=== PATIENT | male | born 1945 | race Caucasian/White ===

== ENCOUNTER → 2019-01-30 | Outpatient (CLI) | payer OTHER ==
[~2019-01-30] VITALS: Ht 175.3 cm; Wt 77.1 kg
[2019-01-30] VITALS (8 sets, daily range): BP systolic 11–158; BP diastolic 49–87
[2019-01-30 08:32] LABS: HEMATOCRIT 44.9 % (42.0-52.0); HEMOGLOBIN 15.3 gm/dL (14.0-18.0); MCH 32.3 pg (26.0-34.0); MCV 94.9 fL (80.0-100.0); MPV 7.7 fl. (7.2-11.1); RBC 4.73 mil/uL (4.50-6.00); RDW-CV 12.7 % (10.5-14.5); WBC 5.6 thou/uL (4.0-11.0)
[2019-01-30 08:45] LABS: APTT 25.9 Seconds (25.0-31.3); PROTIME 10.5 Seconds (9.20-11.50)
[2019-01-30 08:48] LABS: ALBUMIN 3.8 g/dL (3.4-5.0); ALKALINE PHOSPHATASE 69 U/L (46-116); ANION GAP 5 mmol/L (7-16); BUN 20 mg/dL (7-18); CHLORIDE 103 mmol/L (98-107); CHOLESTEROL 188 mg/dL (<200); CO2 32 mmol/L (21-32); CREATININE 1.1 mg/dL (0.6-1.3); GLUCOSE 94 mg/dL (70-99); HDL CHOLESTEROL 80 mg/dL (>40); LDL CHOLESTEROL 89 mg/dL (<100); POTASSIUM 3.6 mmol/L (3.5-5.1); SERUM ASSESSMENT Clear; SGOT 29 U/L (15-37); SGPT 32 U/L (30-65); SODIUM 140 mmol/L (136-145); TC:HDL 2.4 Ratio (Not establshd); TOTAL BILIRUBIN 0.9 mg/dL (<0.1-1.0); TOTAL PROTEIN 7.1 g/dL (6.4-8.2); TRIGLYCERIDE 96 mg/dL (<150); VLDL 19 mg/dL (<40)
--- NOTE | 2019-01-31 18:03 | CARD ---
[address] [address] CARDIAC CATH REPORT Name: RIVER MONTOYA Room: [facility] DAGO EllisKatherin#: [id number] Admission: 01/30/19 Attend Phys: Chip Hoffmann MD, F Discharge: Date of : 43 Report #: [id number] THIS REPORT FOR: //name// APPROVED REPORT Study performed: 01/30/2019 08:20:27 Patient Details Patient Status: Out-Patient Room #: The patient is a 73 year-old male Event Personnel Chip Hoffmann Fly Worker, Cassandra Somers RN Pharmacy Retail Support Specialist, Isidro Ellis, Michaela Kaur RTR Scrub Procedures Performed Left Heart Cath w/LT VGram [id number] LHCLV Left Heart Cath w/LT VGram [id number] LHCLV Supravalvular Aortography Injection [id number] ISVA Indication Dyspnea, Valvular heart disease Risk Factors Hypercholesterolemia Previous Procedures/Diagnoses Previous PCI, Previous SD Admission/Lab Medications/Medications given during procedure Heparin Unfract., Midazolam (Versed) IV 2 mg Procedure Narrative The patient was brought electively to the Cardiac Catheterization Laboratory and was prepped and draped in a sterile manner. The right wrist was infiltrated with 1% Lidocaine subcutaneous anesthesia. A Slender Glidesheath sheath was inserted into the RRA. Coronary angiography was performed using coronary diagnostic catheters. The right coronary system was accessed and visualized with a JR4 catheter. The left coronary system was accessed and visualized with a JL5 6fr catheter. The left ventricle was accessed and visualized with a Angled PIG catheter. Left ventricular/Aortic Valve gradient assessed via catheter pullback. Left ventriculogram was performed in KRUEGER projection. An aortogram of the ascending aorta was performed. Closure device was deployed with a 6 Fr Vasc-Band Reg 24cm[place] [address] CARDIAC CATH REPORT Name: LINDSAYRIVER Room: [facility]#: [id number] Admission: 01/30/19 Attend Phys: Chip Hoffmann MD, F Discharge: Date of : 43 Report #: [id number] patient tolerated the procedure well and there were no complications associated with the procedure. There was no hematoma. Intraoperative Conscious Sedation Dose: 30.6 mGy Contrast Type and Amount: Omnipaque 180 ml Coronary Angiography The patient's coronary anatomy is right dominant. Diagnostic Cath Left Main 30% distal stenosis LAD 70% mid stenosis Diagonal 1 90% ostial stenosis and 80% mid stenosis Circumflex 80% proximal and 80% mid stenosis Right Coronary 30% proximal stenosis. Stent noted in mid rca without restenosis Left Ventriculography The left ventricular ejection fraction is estimated to be 35-40%. Left ventricular wall motion abnormalities are present. There is 1+ mitral insufficiency. Severe hypokinesis noted of inferior wall. Aortic root injection revealed moderate aortic insufficiency. Hemodynamics The aortic pressure is 107/57 mmHg with a mean of 80 mmHg. The left ventricular pressure is 133/10 mmHg with a mean of mmHg. The left ventricular end diastolic pressure is 19 mmHg. There was no gradient across the aortic valve upon pullback. Pullback from the left ventricle to the aorta revealed no gradient across the aortic valve. Conclusion 1. no restenosis of stent in mid rca 2. severe cad of lad and circumflex 3. LVEF of 35-40% 4. moderate aortic [place] [address] CARDIAC CATH REPORT Name: RIVER MONTOYA Room: [facility].#: [id number] Admission: 01/30/19 Attend Phys: Chip Hoffmann MD, F Discharge: Date of : 43 Report #: [id number] 1. refer for CABG and AVR 2. start Coreg 3.125 mg BID <ELECTRONICALLY SIGNED> By: Chip Hoffmann MD, FACC 01/31/19 1803 180 1803Dpaige Hoffmann MD, FACC /INF
== END | disposition home or self-care (01) ==
LOC: M.CL 07:49
PROVIDERS: Internal Medicine Cardiovascular Disease
DX: I25.10 Atherosclerotic heart disease of native coronary artery without angina pectoris (principal); I35.1 Nonrheumatic aortic (valve) insufficiency; E78.00 Pure hypercholesterolemia, unspecified; Z95.5 Presence of coronary angioplasty implant and graft; Z98.890 Other specified postprocedural states; Z79.899 Other long term (current) drug therapy; Z79.01 Long term (current) use of anticoagulants

== ENCOUNTER 2019-02-24 09:42 | Inpatient (IN) | payer OTHER ==
[~2019-02-24] VITALS: Ht 175.3 cm; Wt 68.0 kg
--- NOTE | ~2019-02-24 | PROC ---
[address] [address] PROCEDURE REPORT Name: RIVER MONTOYA Room: [address] IN .R.#: [id number] Admission: 02/24/19 Attend Phys: Bhavani Ibarra MD Discharge: Date of : 43 Report #: [id number] THIS REPORT FOR: //name// For GI report, please see the Provation report in Perceptive 7 content. By: 0642Medical Records Staff ELI /KHOI
[2019-02-24 09:49] VITALS: BP 125/80
[2019-02-24] MEDS ORDERED: COUMADIN 2 MG TA2 M1 PO (10:12)
[2019-02-24] MEDS ORDERED: PACERONE 200 M200 M1 PO (10:13)
[2019-02-24] MEDS ORDERED: CARVEDILOL3.125 MG PO (10:13)
[2019-02-24] MEDS ORDERED: FERREX 150150 MG PO (10:13)
[2019-02-24] MEDS ORDERED: COLACE100 MG PO (10:14)
[2019-02-24] MEDS ORDERED: MIRALAX17 GM PO (10:14)
[2019-02-24] MEDS ORDERED: NORCO 5-325 TA1 EACH PO (10:14)
[2019-02-24] MEDS ORDERED: TYLENOL EXTRA500 MG PO (10:14)
[2019-02-24] MEDS ORDERED: PEPCID40 MG PO (10:15)
[2019-02-24] MEDS ORDERED: VITAMINC500 PO (10:15)
[2019-02-24] MEDS ORDERED: ASPIR 8181 MG PO (10:15)
[2019-02-24] MEDS ORDERED: VITAMIN D3400 UNIT PO (10:15)
[2019-02-24] MEDS ORDERED: CALCIUM + D3 E1 EACH PO (10:16)
[2019-02-24 10:25] LABS: HEMATOCRIT 28.4 % (42.0-52.0); HEMOGLOBIN 9.4 gm/dL (14.0-18.0); MCH 31.6 pg (26.0-34.0); MCHC 33.3 g/dL (28.0-37.0); MCV 95.1 fL (80.0-100.0); MPV 6.9 fl. (7.2-11.1); NUCLEATED RBCS 0 /100WBC; PLATELET COUNT* 304 thou/uL (150-400); RBC 2.99 mil/uL (4.50-6.00); RDW-CV 14.6 % (10.5-14.5)
[2019-02-24 10:39] LABS: CALCIUM 8.8 mg/dL (8.5-10.1); CREATININE 1.4 mg/dL (0.6-1.3); POTASSIUM 4.4 mmol/L (3.5-5.1); TROPONIN-I LEVEL 0.11 ng/mL (<0.06)
[2019-02-24 10:45] LABS: ALBUMIN 2.8 g/dL (3.4-5.0); APTT 29.2 Seconds (25.0-31.3); INR 1.9; PROTIME 19.1 Seconds (9.20-11.50); TOTAL BILIRUBIN 1.1 mg/dL (<0.1-1.0); TOTAL PROTEIN 5.9 g/dL (6.4-8.2)
[2019-02-24 10:49] LABS: ABSOLUTE EOSINOPHILS 0.2 thou/uL (0.0-0.7); ABSOLUTE LYMPHOCYTES 1.1 thou/uL (0.8-5.3); ABSOLUTE MONOCYTES 0.7 thou/uL (0.0-1.2); METAMYELOCYTES 1 %
[2019-02-24 10:50] LABS: PLATELET ESTIMATE ADEQUATE
[2019-02-24 10:51] LABS: ANISOCYTOSIS Occasional
[2019-02-24 11:56] LABS: PCO2 32.9 mmHg (35.0-45.0); PO2 73.2 mmHg (75.0-100.0); pH 7.496 (7.340-7.450)
[2019-02-24 14:55] VITALS: BP 107/63
[2019-02-24 15:14] VITALS: BP 113/74
[2019-02-24 16:00] VITALS: BP 85/55
[2019-02-24 20:00] VITALS: BP 109/66
[2019-02-25] VITALS: BP 104/62
[2019-02-25 04:00] VITALS: BP 104/68
[2019-02-25 04:37] LABS: HEMATOCRIT 25.7 % (42.0-52.0); HEMOGLOBIN 8.7 gm/dL (14.0-18.0); MCH 32.1 pg (26.0-34.0); MCV 94.3 fL (80.0-100.0); MPV 6.6 fl. (7.2-11.1); RBC 2.72 mil/uL (4.50-6.00); RDW-CV 14.8 % (10.5-14.5); WBC 11.7 thou/uL (4.0-11.0)
[2019-02-25 04:46] LABS: CALCIUM 8.5 mg/dL (8.5-10.1); CREATININE 1.5 mg/dL (0.6-1.3); MAGNESIUM 2.1 mg/dL (1.8-2.4)
[2019-02-25 04:55] LABS: INR 1.8; PROTIME 18.7 Seconds (9.20-11.50)
[2019-02-25 08:00] VITALS: BP 111/72
[2019-02-25 12:04] VITALS: BP 90/48
--- NOTE | 2019-02-25 12:52 | EKG ---
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: [facility] : 1945 Requested By: Dolores López Order Number: [id number] MD: Chip Hoffmann Measurements Intervals [place] Rate: 69 P: 76 ID: 168 QRS: -22 QRSD: 116 T: 134 QT: 435 QTc: 466 Interpretive Statements Sinus rhythm Nonspecific intraventricular conduction delay Repol abnrm suggests ischemia, anterolateral No previous ECG available for comparison Electronically Signed On 02-25-2019 12:52:12 CDT by Chip Hoffmann [email or web address] <ELECTRONICALLY SIGNED> By: Chip Hoffmann MD, [facility] 02/25/19 1252 0955 Chip Hoffmann MD, [facility] /EPI
[2019-02-25 16:53] VITALS: BP 110/64
[2019-02-25 19:15] VITALS: BP 105/71
[2019-02-26] VITALS (7 sets, daily range): BP systolic 96–122; BP diastolic 58–74
[2019-02-26 04:37] LABS: HEMATOCRIT 28.9 % (42.0-52.0); HEMOGLOBIN 9.4 gm/dL (14.0-18.0)
[2019-02-26 04:55] LABS: CALCIUM 8.3 mg/dL (8.5-10.1); CREATININE 1.7 mg/dL (0.6-1.3); POTASSIUM 3.3 mmol/L (3.5-5.1)
[2019-02-26 05:04] LABS: INR 2.1
--- NOTE | 2019-02-26 13:37 | EKG ---
[place] [address] ELECTROCARDIOGRAM REPORT Name: RIVER MONTOYA Room: [address] ADM IN M.R.#: [id number] Admission: 02/24/19 Attend Phys: Bhavani Ibarra MD Discharge: Date of : 43 Report #: [id number] THIS REPORT FOR: //name// [facility] Test Date: 2019-02-25 Test Time: 17:10:59 Pat Name: RIVER MONTOYA Department: Room: [address] Gender: M Histology Aide: : 1945 Requested By: Bhavani Ibarra Order Number: [id number] Reading MD: Chip Hoffmann Measurements Intervals [place] Rate: 87 P: [place]: QRS: -21 QRSD: 126 T: 145 QT: 500 QTc: 602 Interpretive Statements Atrial fibrillation LVH with secondary repolarization abnormality Prolonged QT interval Baseline wander in lead(s) V5 Compared to ECG 02/24/2019 09:55:40 Left ventricular hypertrophy now present Prolonged QT interval now present Sinus rhythm no longer present Electronically Signed On 02-26-2019 13:37:31 CDT by Chip Hoffmann [email or web address] <ELECTRONICALLY SIGNED> By: Chip Hoffmann MD, [facility] 02/26/19 1337 1710 1710 Chip Hoffmann MD, [facility] /EPI
--- NOTE | 2019-02-26 15:55 | EKG ---
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: : 1945 Requested By: Chip Hoffmann Order Number: [id number] Tati MD: Deep Kerr Measurements Intervals [place] Rate: 95 P: SD: QRS: -24 QRSD: 121 T: 119 QT: 452 QTc: 569 Interpretive Statements Atrial fibrillation Borderline repolarization abnormality Compared to ECG 02/24/2019 09:55:40 Sinus rhythm no longer present Possible ischemia no longer present Electronically Signed On 02-26-2019 15:55:32 CDT by Deep Kerr [email or web address] <ELECTRONICALLY SIGNED> By: Deep Kerr MD, [facility] 02/26/19 1555 0902 1 Deep Kerr MD, [facility] /EPI
--- NOTE | 2019-02-26 17:25 | CON ---
[facility] [address] [place] [address] CONSULTATION Name: RIVER MONTOYA Room: [address] IN .R.#: [id number] Admission: 02/24/19 Attend Phys: Bhavani Ibarra MD Discharge: Date of : 43 Report #: [id number] THIS REPORT FOR: //name// CC: Chip Valdivia DATE OF SERVICE: 02/24/2019 HISTORY OF PRESENT ILLNESS: The patient is a 73-year-old white male who I was asked to see in the Emergency Room today after he complained of being short of breath. The patient presented last fall with shortness of breath. He was noted to have a heart murmur. He is referred to my partner, Dr. Ponce. Echocardiogram showed evidence of aortic insufficiency. I actually performed a cardiac catheterization here at [facility] as an outpatient on the patient on 01/30/2019. Results showed a stent in the right coronary artery, it had no restenosis. There was severe disease noted in the mid LAD and circumflex. Ejection fraction was 40%. He was then referred to Dr. Jem Lehman and 10 days ago, he underwent aortic valve replacement using tissue valve and coronary artery bypass surgery at [facility]. He tolerated the surgery well. After surgery, he went into atrial fibrillation, he was placed on warfarin and amiodarone. He has also been noted to be severely anemic, but decided not to give him a transfusion. He was discharged on iron 4 days ago. He notes that since his discharge, he has had progressive shortness of breath. He has had swelling of his feet. He has noticed an irregular heartbeat. He felt somewhat nauseated. Because of shortness of breath, his brought him to the Emergency Room today for further evaluation and treatment. He denies any chest pain, any bleeding or fever. PAST MEDICAL HISTORY: He has had shoulder surgery, previous coronary stent. MEDICATIONS: He has been on since his discharge 4 days ago after his open heart surgery included warfarin, iron supplements, amiodarone, carvedilol, Pepcid. FAMILY HISTORY: Negative for heart disease. SOCIAL HISTORY: He is . He and his live in [place]. He quit smoking years ago, does not drink alcohol anymore. REVIEW OF SYSTEMS: He has had no history of stroke. Previous carotid Doppler study showed no significant stenosis. He has no history of peptic ulcer disease, liver disease, kidney disease or cancer. 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 PHYSICAL EXAMINATION: GENERAL: Revealed an elderly male, who appeared [place] [address] CONSULTATION Name: RIVER MONTOYA Room: [address] IN [facility]#: [id number] Admission: 02/24/19 Attend Phys: Bhavani Ibarra MD Discharge: Date of : 43 Report #: [id number] VITAL SIGNS: He had a blood pressure 120/80, pulse is 70, he is afebrile. HEENT: He is anicteric. Conjunctivae pink. Mucous membranes are dry. NECK: No jugular vein distention. No carotid bruits. CHEST: Clear to auscultation. CARDIAC: Regular rate and rhythm, grade 2 systolic ejection murmur. ABDOMEN: Soft. EXTREMITIES: Had trace edema. Dorsalis pedis pulse 1+ bilaterally. SKIN: Warm, dry. NEUROLOGIC: Nonfocal. DIAGNOSTIC DATA: ECG shows a sinus rhythm, nonspecific ST-segment changes. His workup in the Emergency Room today, he had portable chest x-ray in the Emergency Room that showed cardiomegaly, small left effusion. Right lung clear. No pneumothorax. LABORATORY WORK: Today sodium 140, creatinine 1.4, albumin is 2.8. Troponin 0.11. BNP 2587. His INR is 1.9. White blood cell count 12.0, hemoglobin 9.4, hematocrit 28.4. IMPRESSION AND RECOMMENDATIONS: 1. Shortness of breath. Reason unclear. No pulmonary edema or pneumonia. The patient is to have a V/Q scan and look for a pulmonary embolus. However, the patient is anticoagulated, possibly related to anemia. 2. Anemia. The patient's hemoglobin has gone from 7 up to 9 at this time. He does not require transfusion. 3. History of atrial fibrillation. Currently in sinus rhythm on amiodarone. I would continue chronic anticoagulation, maintain INR on 2-3. 4. Previous coronary stent. 5. Previous tobacco abuse. 6. Chronic kidney disease. <ELECTRONICALLY SIGNED> By: Chip Hoffmann MD, [facility] 02/26/19 1725 1206 1539Davielaine Hoffmann MD, FACC /nt
[2019-02-27 04:00] VITALS: BP 101/62
[2019-02-27 05:43] LABS: ABSOLUTE EOSINOPHILS 0.3 thou/uL (0.0-0.7); ABSOLUTE MONOCYTES 0.6 thou/uL (0.0-1.2); ABSOLUTE NEUTROPHILS 7.3 thou/uL (1.6-8.1); BASOPHILS 0.3 %; EOSINOPHILS 2.9 %; HEMOGLOBIN 8.6 gm/dL (14.0-18.0); LYMPHOCYTES 10.7 %; MCHC 33.3 g/dL (28.0-37.0); MCV 96.2 fL (80.0-100.0); MPV 6.8 fl. (7.2-11.1); NUCLEATED RBCS 0 /100WBC; PLATELET COUNT* 286 thou/uL (150-400); POLYS 79.1 %; RDW-CV 15.3 % (10.5-14.5); WBC 9.3 thou/uL (4.0-11.0)
[2019-02-27 05:53] LABS: INR 2.2; PROTIME 22.4 Seconds (9.20-11.50)
[2019-02-27 06:09] LABS: ALBUMIN 2.5 g/dL (3.4-5.0); CALCIUM 8.3 mg/dL (8.5-10.1); CREATININE 1.5 mg/dL (0.6-1.3); POTASSIUM 4.6 mmol/L (3.5-5.1); TOTAL BILIRUBIN 0.7 mg/dL (<0.1-1.0); TOTAL PROTEIN 5.3 g/dL (6.4-8.2)
[2019-02-27 07:02] LABS: ESR (SEDRATE) 5 mm/hr (0-20)
[2019-02-27 07:41] VITALS: BP 106/67
[2019-02-27 08:00] VITALS: BP 106/74
--- NOTE | 2019-02-27 11:01 | CON ---
[facility] [address] [place] [address] CONSULTATION Name: RIVER MONTOYA Room: [address] IN .R.#: [id number] Admission: 02/24/19 Attend Phys: Bhavani Ibarra MD Discharge: Date of : 43 Report #: [id number] THIS REPORT FOR: //name// CC: Chip Hoffmann FAM unknown Bhavani Ibarra REFERRING PHYSICIAN: Dr. Ibarra. REASON FOR CONSULTATION: Abnormal V/Q scan. HISTORY OF PRESENT ILLNESS: The patient is a pleasant 73-year-old male patient who was admitted to this facility on 02/24/2019 with few days history of increasing shortness of breath. The patient had a valve surgery at [facility] for aortic insufficiency. He underwent aortic valve replacement with tissue valve and coronary artery bypass at that time. In the postoperative period, he developed some atrial fibrillation and started on Coumadin and he was discharged home on Coumadin. His EF was 40%. The patient reported the second day after discharge, he started feeling weak, tired with poor performance and poor oral intake and he started noticing that he was more short of breath and he actually described PNDs and orthopnea. He presented for further evaluation and was admitted to the hospital. He had lower extremities edema. He had irregular heartbeat. Also, he had some nausea and poor oral intake. PAST MEDICAL HISTORY: Coronary artery disease, status post coronary artery bypass graft recently and aortic valve replacement, history of smoking in the remote past. No history of COPD. No history of asthma. He had history of coronary stenting. PAST SURGICAL HISTORY: Include coronary stenting and CABG in addition to shoulder surgery. MEDICATION: Coumadin, iron supplement, amiodarone, Coreg, Pepcid. FAMILY HISTORY: Reviewed with the patient and negative for heart disease. SOCIAL HISTORY: , lives with his . Quit smoking many years ago. Does not drink alcohol. Does not abuse drugs. REVIEW OF SYSTEMS: All review of systems reviewed the patient, negative other than as mentioned above. PHYSICAL EXAMINATION: VITAL SIGNS: He was on room air with saturation more than 90%, blood pressure 112/68, pulse rate of 73, temperature 36.7. HEAD: Normocephalic, atraumatic. Pupils reactive to light, slightly pale. External ear, looks healthy and normal. Pupils [place] [address] CONSULTATION Name: RIVER MONTOYA Room: [address]#: [id number] Admission: 02/24/19 Attend Phys: Bhavani Ibarra MD Discharge: Date of : 43 Report #: [id number] cavity, Mallampati of 2-3. NECK: Supple. Full range of movement. CHEST: Diminished air movement at the bases. I did not hear crackles, wheezes or rhonchi. Clean scar in the sternal area. HEART: S1, S2, no murmur. ABDOMEN: Benign, soft, lax, nontender, positive bowel sounds. EXTREMITIES: Lower extremity, trace edema, equal bilaterally. No calf tenderness. PSYCHIATRIC: Mood and affect anxious. NEUROLOGIC: Moving 4 extremities spontaneously. No focal weakness. Venous Doppler ultrasound of the lower extremities negative for DVT. His chest x-ray showed blunting of the left costophrenic angle. CT of the chest showed small bilateral pleural effusion with area of atelectasis versus infiltrate. His white blood count is 12, hemoglobin 9.4 and platelets of 304. Blood gas 7.49/32/73 on room air. INR when he came was 1.9, is 2.1 today. IMPRESSION: 1. Dyspnea. 2. Pulmonary infiltrate. 3. Small pleural effusion. 4. Atelectasis. 5. Status post coronary artery bypass graft. 6. Congestive heart failure with depressed ejection fraction. 7. Coronary artery disease. 8. Abnormal V/Q scan. PLAN: The patient's shortness of breath can be explained by fluid overload and cardiac status with depressed EF and congestive heart failure. He has typical symptoms of PND and orthopnea with small bilateral pleural effusion. Currently, he is being seen by Cardiology and he is being diuresed. Pneumonia could not be ruled out, that is why he is on antibiotics. I did not hear wheezes. I do not think he has any bronchospasm at this point. Regarding the pleural effusion, hopefully, it will respond to diuresis; however, if it becomes resistant, an attempt for therapeutic thoracentesis can be considered, but his Coumadin needs to be held if indicated. This could be an element of atelectasis. I encouraged ambulation out of bed if it is okay with other consultants and to continue to use the incentive spirometry. Regarding the V/Q scan, it is intermediate probability with a negative Doppler ultrasound of lower extremities and the other finding on the examination that would explain his symptoms. In any case, he is fully anticoagulated at this point and I would just continue the anticoagulation for his atrial fibrillation. [address] [address] CONSULTATION Name: RIVER MONTOYA Room: [address] IN [facility]#: [id number] Admission: 02/24/19 Attend Phys: Bhavani Ibarra MD Discharge: Date of : 43 Report #: [id number] Thank you for the consult. Discussed with the patient and his . <ELECTRONICALLY SIGNED> By: Susanne Burnette MD 02/27/19 1101 1026 0112Dpaula Burnette MD /nt
[2019-02-27 12:00] VITALS: BP 120/40
--- NOTE | 2019-02-27 14:19 | EKG ---
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: : 1945 Requested By: Chip Hoffmann Order Number: [id number] Tati MD: Jem Banuelos Measurements Intervals [place] Rate: 67 P: 75 OR: 179 QRS: -17 QRSD: 127 T: 131 QT: 514 QTc: 543 Interpretive Statements Sinus rhythm Nonspecific intraventricular conduction delay Borderline repolarization abnormality Compared to ECG 02/26/2019 09:02:08 Intraventricular conduction delay now present Atrial fibrillation no longer present Electronically Signed On 02-27-2019 14:19:10 CDT by Jem Banuelos [email or web address] <ELECTRONICALLY SIGNED> By: Jem Banuelos MD, [facility] 02/27/19 1419 3 Jem Banuelos MD, [facility] /EPI
[2019-02-27 16:00] VITALS: BP 109/58
[2019-02-27 20:00] VITALS: BP 94/54
[2019-02-28] VITALS: BP 97/68
[2019-02-28 04:00] VITALS: BP 107/68
[2019-02-28 04:55] LABS: HEMATOCRIT 27.9 % (42.0-52.0); HEMOGLOBIN 9.2 gm/dL (14.0-18.0); MCH 31.7 pg (26.0-34.0); MCV 96.2 fL (80.0-100.0); MPV 6.5 fl. (7.2-11.1); RBC 2.9 mil/uL (4.50-6.00); WBC 8.7 thou/uL (4.0-11.0)
[2019-02-28 05:03] LABS: INR 2.7; PROTIME 27.3 Seconds (9.20-11.50)
[2019-02-28 05:08] LABS: CALCIUM 8.3 mg/dL (8.5-10.1); CREATININE 1.5 mg/dL (0.6-1.3); MAGNESIUM 2.2 mg/dL (1.8-2.4); POTASSIUM 4.3 mmol/L (3.5-5.1)
[2019-02-28 08:07] VITALS: BP 119/65
[2019-02-28 11:22] VITALS: BP 117/62
[2019-02-28 15:58] VITALS: BP 119/79
[2019-02-28 20:07] VITALS: BP 111/68
[2019-03-01 00:03] VITALS: BP 121/67
[2019-03-01 04:00] VITALS: BP 107/66
[2019-03-01 05:02] LABS: INR 2.7; PROTIME 27.4 Seconds (9.20-11.50)
[2019-03-01 07:53] VITALS: BP 117/76
[2019-03-01 12:09] VITALS: BP 120/82
[2019-03-01 16:00] VITALS: BP 117/62
--- NOTE | 2019-03-01 16:15 | 2DMMODE ---
[place] [address] 2 D/M-MODE ECHOCARDIOGRAM Name: RIVER MONTOYA Room: [address] IN [facility]#: [id number] Admission: 02/24/19 Attend Phys: Bhavani Ibarra, Discharge: Date of : 41 Date of Service: 03/01/19 1615 Report #: [id number] THIS REPORT FOR: //name// ADDENDUM APPROVED REPORT Study performed: 03/01/2019 15:24:30 EXAM: Comprehensive 2D, Doppler, and color-flow Echocardiogram Patient Location: In-Patient Room #: [facility] Status: routine BSA: 1.81 HR: 67 bpm BP: 120/82 mmHg Rhythm: NSR Other Information Study Quality: Good Indications Congestive Heart Failure CAD Pleural Effusion 2D Dimensions IVSd: 12.59 (7-11mm) LVOT Diam: 20.70 (18-24mm) LVDd: 47.91 mm PWd: 11.08 (7-11mm) Ascending Ao: 36.02 (22-36mm) LVDs: 35.13 (25-40mm) Aortic Root: 38.02 mm Volumes Left Atrial Volume (Systole) LA ESV Index: 21.00 mL/m2 Aortic Valve AoV Peak Hunter.: 2.51 m/s AO Peak Gr.: 25.17 mmHg LVOT Max P.42 mmHg AO Mean Gr.: 14.40 mmHg LVOT Mean P.38 mmHg LVOT Max V: 1.05 m/s AO V2 VTI: 41.40 cm LVOT Mean V: 0.72 m/s GILDA (VTI): 1.41 cm2 LVOT V1 VTI: 17.30 cm Mitral Valve E/A Ratio: 1.06 [place] [address] 2 D/M-MODE ECHOCARDIOGRAM Name: RIVER MONTOYA Room: [address] IN .R.#: [id number] Admission: 02/24/19 Attend Phys: Bhavani Ibarra, Discharge: Date of : 41 Date of Service: 03/01/19 1615 Report #: [id number] MV Decel. Time: 223.77 ms MV E Max Hunter.: 0.57 m/s MV PHT: 64.89 ms MVA (PHT): 3.39 cm2 TDI E/Lateral E': 6.33 E/Medial E': 9.50 Medial E' Hunter.: 0.06 m/s Lateral E' Hunter.: 0.09 m/s Pulmonary Valve PV Peak Hunter.: 1.41 m/s PV Peak Gr.: 8.01 mmHg Left Ventricle The left ventricle is normal size. There is normal LV segmental wall motion. There is normal left ventricular wall thickness. Left ventricular systolic function is normal. The left ventricular ejection fraction is within the normal range. LVEF is 50-55%. The left ventricular diastolic function is normal. Right Ventricle The right ventricle is normal size. The right ventricular systolic function is normal. Atria The left atrium size is normal. The right atrium size is normal. Aortic Valve Moderate aortic valve sclerosis. Bioprosthetic aortic valve is present. No aortic regurgitation is present. Mild aortic stenosis. Mitral Valve The mitral valve is normal in structure. Trace mitral regurgitation. No evidence of mitral valve stenosis. Tricuspid Valve The tricuspid valve is normal in structure. Trace tricuspid regurgitation. No pulmonary hypertension. Pulmonic Valve The pulmonary valve is normal in structure. There is no pulmonic valvular regurgitation[place] [address] 2 D/M-MODE ECHOCARDIOGRAM Name: RIVER MONTOYA Room: [address]#: [id number] Admission: 02/24/19 Attend Phys: Bhavani Ibarra, Discharge: Date of : 41 Date of Service: 03/01/19 1615 Report #: [id number] The aortic root is normal in size. IVC is normal in size and collapses >50% with inspiration. Pericardium There is no pericardial effusion. Left pleural effusion. <Conclusion> The left ventricle is normal size. There is normal left ventricular wall thickness. Left ventricular systolic function is normal. The left ventricular ejection fraction is within the normal range. LVEF is 50-55%. The left ventricular diastolic function is normal. The right ventricle is normal size. The left atrium size is normal. Moderate aortic valve sclerosis. No aortic regurgitation is present. Mild aortic stenosis. The mitral valve is normal in structure. Trace mitral regurgitation. The tricuspid valve is normal in structure. IVC is normal in size and collapses >50% with inspiration. There is no pericardial effusion. There is normal LV segmental wall motion. Bioprosthetic aortic valve is present. Left pleural effusion. <ELECTRONICALLY SIGNED> By: Jem Banuelos MD, FACC 03/01/19 1615 1615 1615 Jem Banuelos MD, FACC /INF
--- NOTE | 2019-03-01 19:36 | CON ---
[facility] [address] [place] [address] CONSULTATION Name: RIVER MONTOYA Room: [address] IN M.R.#: [id number] Admission: 02/24/19 Attend Phys: Bhavani Ibarra MD Discharge: Date of : 41 Report #: [id number] THIS REPORT FOR: //name// CC: Chip Geiger FAM unknown Bhavani Ibarra MD DATE OF SERVICE: 02/26/2019 REFERRING PHYSICIAN: Bhavani Ibarra MD. REASON FOR CONSULTATION: Persistent nausea and anorexia. IMPRESSION: 1. Dysphagia associated with early satiety, nausea, burping and belching -- evaluate for upper gastrointestinal tract anatomic or physiologic problems versus medication related (amiodarone versus iron). 2. Versus other causes. 3. Postoperative anemia without any history to suggest gastrointestinal blood loss. 4. Status post coronary artery bypass grafting and aortic valve replacement on 02/14/2019 for symptomatic coronary artery disease and aortic valve disorder. 5. Atrial fibrillation with postoperative atrial fibrillation requiring anticoagulation. 6. Congestive heart failure with mild pneumonia. RECOMMENDATIONS: 1. The patient's premorbid status prior to surgery revealed that he had no GI complaints. All of his issues have happened after surgery. For this reason, I recommend that we proceed with an upper endoscopy today and depending on the results of the same, he may need to have a gastric emptying scan done as well, appear to be unlikely he developed postoperative gastroparesis. 2. Another possibility would be that it may be related to medications including amiodarone and/or iron. 3. As I mentioned above, it may be related to medication as well. We will need to proceed with some studies first before deciding whether or not to discontinue the amiodarone as this can certainly be a culprit for the same, he may need to have an alternate medication to help with his atrial fibrillation. I have discussed the plans with the patient as well and he is agreeable to the same. HISTORY OF PRESENT ILLNESS: The patient is a very pleasant 73[place] [address] CONSULTATION Name: RIVER MONTOYA Room: [address] IN [facility]#: [id number] Admission: 02/24/19 Attend Phys: Bhavani Ibarra MD Discharge: Date of : 43 Report #: [id number] male with history of coronary artery disease and aortic valve disease who underwent uneventful coronary artery bypass grafting and aortic valve replacement at [facility] in late January. Postoperatively, he developed some problems with atrial fibrillation, which required the patient to be placed on medications for the same. Since that time, he has had issues with early satiety, some issues with dysphagia and postprandial fullness. He has also had some problems with gas and bloating. He denies any prior history of any problems related to his upper GI tract in the past and undergone upper endoscopy within the last couple of years by Dr. Delmar Alcala and the exam was apparently unrevealing. This is being done to evaluate for any relationship to any problems related to chronic gastric reflux, which the patient takes Pepcid. He denies any progressive dysphagia, odynophagia, any problems with liquids, but is not afraid to eat solids. He denies any abdominal pain and has not had any problem with his bowels or bowel frequency. He was admitted to the hospital because of problem with shortness of breath, found to have some pneumonia and/or congestive heart failure, which is being treated at this time. He is doing better with regards to the same. ALLERGIES: LISINOPRIL AND SIMVASTATIN. MEDICATIONS: At home include docusate, hydrocodone, famotidine, aspirin, ascorbic acid, vitamin D, calcium, and MiraLax. He is also taking amiodarone, warfarin. He is also taking some iron supplement postoperatively. PAST MEDICAL HISTORY: Remarkable for coronary artery disease with previous stents as well as eventually bypass surgery and aortic valve replacement. He has had previous shoulder surgeries well. He has history of hypertension. SOCIAL HISTORY: The patient quit smoking, quit back in 1980s, does not drink alcohol on a regular basis. FAMILY HISTORY: Remarkable for his mother having issues with her esophagus. PHYSICAL EXAMINATION: GENERAL: Pleasant 73-year-old gentleman who is awake and alert. CARDIOPULMONARY: Revealed an irregular rate and rhythm. LUNGS: Clear. ABDOMEN: Soft and not tender. No rebound or guarding noted. LABORATORY DATA: From 8th revealed a white count 11.7, hemoglobin 8.7, platelet count 260,000, MCV is 94.3 and RDW is 14.8. His sodium 144, potassium 4.0, chloride 104, bicarbonate 31, BUN 27, creatinine 1.5. GFR 46. His INR is 2.1. Chest x-ray revealed interval decrease in left-sided pleural effusion with a poor aeration. He had some mild left basilar atelectasis and pneumonia without any increasing infiltrate, no evidence for pneumothorax. [address] [address] CONSULTATION Name: RIVER MONTOYA Room: [address] IN ..#: [id number] Admission: 02/24/19 Attend Phys: Bhavani Ibarra MD Discharge: Date of : 41 Report #: [id number] He just did undergo CT scan of the chest on the 02/24/2019, which revealed no evidence for a pulmonary emboli. He did have infiltrate. His liver looks normal on CT as well as his pancreas, gallbladder, and kidneys. I do not see anything of concern within CT scan of the chest, which goes to the upper abdominal structures. DISCUSSION: At the present time, the patient has had some issues with postprandial nauseousness. We will proceed with an upper endoscopy today and make further recommendations thereafter. <ELECTRONICALLY SIGNED> By: Lalit Corona DO 03/01/19 [id number] Corona DO /nt
[2019-03-01 19:59] VITALS: BP 107/67
[2019-03-02] VITALS: BP 110/69
[2019-03-02 04:00] VITALS: BP 96/65
[2019-03-02 05:09] LABS: ABSOLUTE BASOPHILS 0.1 thou/uL (0.0-0.2); ABSOLUTE EOSINOPHILS 0.4 thou/uL (0.0-0.7); ABSOLUTE LYMPHOCYTES 1.1 thou/uL (0.8-5.3); ABSOLUTE MONOCYTES 0.6 thou/uL (0.0-1.2); ABSOLUTE NEUTROPHILS 6.6 thou/uL (1.6-8.1); BASOPHILS 0.7 %; EOSINOPHILS 4.4 %; HEMATOCRIT 30.6 % (42.0-52.0); MCH 31.5 pg (26.0-34.0); MCHC 32.7 g/dL (28.0-37.0); MCV 96.6 fL (80.0-100.0); MONOCYTES 7.2 %; NUCLEATED RBCS 0 /100WBC; PLATELET COUNT* 324 thou/uL (150-400); POLYS 75.7 %; RBC 3.17 mil/uL (4.50-6.00); RDW-CV 15.1 % (10.5-14.5); WBC 8.7 thou/uL (4.0-11.0)
[2019-03-02 05:26] LABS: INR 2.5; PROTIME 25.3 Seconds (9.20-11.50)
[2019-03-02 05:29] LABS: CALCIUM 8.6 mg/dL (8.5-10.1); CREATININE 1.4 mg/dL (0.6-1.3); POTASSIUM 4.1 mmol/L (3.5-5.1)
[2019-03-02 08:00] VITALS: BP 114/69
[2019-03-02 13:12] VITALS: BP 96/61
[2019-03-02 16:22] VITALS: BP 101/52
[2019-03-02 19:35] VITALS: BP 86/62
[2019-03-03] VITALS: BP 93/66
[2019-03-03 04:00] VITALS: BP 112/71
[2019-03-03 05:19] LABS: INR 2.7; PROTIME 27.3 Seconds (9.20-11.50)
[2019-03-03 05:33] LABS: CALCIUM 9.1 mg/dL (8.5-10.1); CREATININE 1.5 mg/dL (0.6-1.3); MAGNESIUM 2.2 mg/dL (1.8-2.4); POTASSIUM 4.2 mmol/L (3.5-5.1)
[2019-03-03 07:58] VITALS: BP 99/69
[2019-03-03 08:32] VITALS: BP 99/69
[2019-03-03] MEDS ORDERED: COUMADIN 2 MG TA2 M1 PO (11:45)
[2019-03-03] MEDS ORDERED: KLOR-CON M2020 MEQ PO (11:46)
[2019-03-03] MEDS ORDERED: NEXIUM40 MG PO (11:47)
[2019-03-03] MEDS ORDERED: LASIX 20 MG TAB20 MG PO (11:47)
[2019-03-03] MEDS ORDERED: BENTYL 10 MG CA10 M1 PO (11:48)
== END 2019-03-03 13:45 | disposition home or self-care (01) | DRG 177 ==
LOC: M.ERS 09:42 → M.TBA-ER 12:26 → M.2W 12:26
PROVIDERS: Family Medicine; Internal Medicine Cardiovascular Disease; Internal Medicine Gastroenterology; Personal Emergency Response Attendant; ADMIT Internal Medicine
PROC: 0DJ08ZZ Inspection of Upper Intestinal Tract, Via Natural or Artificial Opening Endoscopic (ICD-10-PCS; principal; 2019-02-26)
DX: J15.6 Pneumonia due to other Gram-negative bacteria (principal); I50.43 Acute on chronic combined systolic (congestive) and diastolic (congestive) heart failure; I13.0 Hypertensive heart and chronic kidney disease with heart failure and stage 1 through stage 4 chronic kidney disease, or unspecified chronic kidney disease; N17.9 Acute kidney failure, unspecified; J98.11 Atelectasis; I25.10 Atherosclerotic heart disease of native coronary artery without angina pectoris; N18.3 Chronic kidney disease, stage 3 (moderate); K21.9 Gastro-esophageal reflux disease without esophagitis; R13.10 Dysphagia, unspecified; D64.9 Anemia, unspecified; K44.9 Diaphragmatic hernia without obstruction or gangrene; R26.9 Unspecified abnormalities of gait and mobility; I48.91 Unspecified atrial fibrillation; E78.5 Hyperlipidemia, unspecified; R19.7 Diarrhea, unspecified; Z95.1 Presence of aortocoronary bypass graft; Z95.4 Presence of other heart-valve replacement; Z79.899 Other long term (current) drug therapy; Z88.8 Allergy status to other drugs, medicaments and biological substances; Z79.01 Long term (current) use of anticoagulants; Z79.82 Long term (current) use of aspirin; Z95.5 Presence of coronary angioplasty implant and graft; Z87.891 Personal history of nicotine dependence; Z79.1 Long term (current) use of non-steroidal anti-inflammatories (NSAID)

== ENCOUNTER 2021-03-16 13:52 | Inpatient (IN) | payer OTHER ==
[~2021-03-16] VITALS: Ht 175.3 cm; Wt 73.9 kg
[~2021-03-16 13:52] MED LIST: ASPIR 8181 MG PO; BENTYL 10 MG CA10 M1 PO; CALCIUM + D3 E1 EACH PO; CARVEDILOL3.125 MG PO; COLACE100 MG PO; COUMADIN 2 MG TA2 M1 PO; FERREX 150150 MG PO; KLOR-CON M2020 MEQ PO; LASIX 20 MG TAB20 MG PO; MIRALAX17 GM PO; NEXIUM40 MG PO; NORCO 5-325 TA1 EACH PO; PACERONE 200 M200 M1 PO; PEPCID40 MG PO; TYLENOL EXTRA500 MG PO; VITAMIN D3400 UNIT PO; VITAMINC500 PO
[2021-03-16] MEDS ORDERED: FAMOTIDINE40 MG PO (16:39)
[2021-03-16] MEDS ORDERED: EZETIMIBE10 MG PO (16:40)
[2021-03-16] MEDS ORDERED: PRADAXA150 MG PO (16:40)
[2021-03-16 17:10] VITALS: BP 133/88
[2021-03-16 20:44] VITALS: BP 113/68
[2021-03-17 00:15] VITALS: BP 108/71
[2021-03-17 04:49] LABS: ABSOLUTE EOSINOPHILS 0.1 thou/uL (0.0-0.7); ABSOLUTE LYMPHOCYTES 1.8 thou/uL (0.8-5.3); ABSOLUTE MONOCYTES 0.5 thou/uL (0.0-1.2); ABSOLUTE NEUTROPHILS 3.7 thou/uL (1.6-8.1); BASOPHILS 0.5 %; HEMOGLOBIN 13.8 gm/dL (14.0-18.0); LYMPHOCYTES 29.9 %; MCH 32.1 pg (26.0-34.0); MCHC 33.6 g/dL (28.0-37.0); MCV 95.4 fL (80.0-100.0); MONOCYTES 7.5 %; MPV 7.5 fl. (7.2-11.1); NUCLEATED RBCS 0 /100WBC; PLATELET COUNT* 135 thou/uL (150-400); POLYS 60.1 %; RDW-CV 12.9 % (10.5-14.5); WBC 6.1 thou/uL (4.0-11.0)
[2021-03-17 05:00] LABS: CALCIUM 9.2 mg/dL (8.5-10.1); CREATININE 0.9 mg/dL (0.6-1.3); POTASSIUM 3.8 mmol/L (3.5-5.1)
[2021-03-17 05:19] VITALS: BP 128/86
[2021-03-17 08:00] VITALS: BP 117/75
[2021-03-17 15:48] VITALS: BP 117/75
--- NOTE | 2021-03-17 16:53 | CARD ---
[address] [address] CARDIAC CATH REPORT Name: RIVER MONTOYA Room: [address] IN [facility].#: [id number] Admission: 03/16/21 Attend Phys: Rodriguez Mena MD Discharge: 03/17/21 Date of : 43 Report #: [id number] THIS REPORT FOR: cc: Chip Geigre David J. DO Blick, David R. MD [facility] ~ APPROVED REPORT Study performed: 03/17/2021 08:03:02 Patient Details Patient Status: In-Patient Room #: 230 The patient is a 75 year-old male Event Personnel Chip Hoffmann Lacrosse Player, Shasha Oscar RN RN, Salomon Yoder RTR Scrub, Kim Maurer RTR Monitor Procedures Performed Art Access - R femoral artery Left Heart Cath Coronaries, Bypass Grafts Supravalvular Aortography Injection Hemostasis w/ Mynx Indication Arrhythmia, Dyspnea, Valvular heart disease, Chest pain Risk Factors Hypercholesterolemia, Coronary Artery Disease Previous Procedures/Diagnoses Previous CABGPrevious PCI, Previous Valve Surgery Admission/Lab Medications/Medications given during procedure Midazolam (Versed) IV 2 mg, Lidocaine Subcut 14 ml, Oxygen Nasal cannula 2 l per min, 0.9% Sodium Chloride IV 75 ml per hr, Midazolam (Versed) IV 1 mg Procedure Narrative The patient was brought electively to the Cardiac Catheterization Laboratory and was prepped and draped in a sterile manner. The right femoral was infiltrated with 2% Lidocaine subcutaneous anesthesia. IV conscious sedation was used throughout procedure with appropriate monitoring and was performed in the presence [place] [address] CARDIAC CATH REPORT Name: RIVER MONTOYA Room: [address]#: [id number] Admission: 03/16/21 Attend Phys: Rodriguez Mena MD Discharge: 03/17/21 Date of : 43 Report #: [id number] who was an independent trained observer other than the physician performing the procedure. A Moore 6 FR sheath was inserted into the right femoral artery. Coronary angiography was performed using coronary diagnostic catheters. The right coronary system was accessed and visualized with a Diagnostic 6 Fr JR 4 catheter. The left coronary system was accessed and visualized with a Diagnostic 6 Fr JL 4 catheter. An aortogram of the ascending aorta was performed. Closure device was deployed with a 6 Fr Mynx 6Fr/7Fr. The patient tolerated the procedure well and there were no complications associated with the procedure. There was no hematoma. The SVG graft to the diagonal artery, ramus artery, and OM was accessed and visualized with a Diagnostic 6 Fr RCB catheter. The HAYWOOD graft to the LAD was accessed and visualized with a Diagnostic 6 Fr IM catheter. Unable to cannulate the SVG with JR4 catheter, left SVG catheter, nor MTP catheter. Intraoperative Conscious Sedation Sedation start time: 08 Case end Time: 0910 Versed 3 mg Fluoro Time: 7.8 minutes Dose: DAP 47031 cGycm2 934 mGy Contrast Type and Amount: Omnipaque 200 ml Coronary Angiography The patient's coronary anatomy is right dominant. [place] Artery Percent Stenosis Grafts (Complete if Previous CABG=Yes: Percent Stenosis) HAYWOOD graft to the LAD appeared chronically occluded. Single SVG was patent with a jump graft to first diagonal artery, ramus artery, and to the 3rd marginal branch of the circumflex Diagnostic Cath Left Main 0% stenosis LAD 60% mid stenosis Diagonal 1 90% ostial stenosis Circumflex 70% proximal stenosis, and a 90% mid stenosis Right Coronary 30% proximal stenosis, 40% mid stenosis, and a distal stent that had 0% restenosis. Left Ventriculography Left Ventriculography was not performed. Aortic root infection showed no aortic insufficiency [place] [address] CARDIAC CATH REPORT Name: RIVER MONTOYA Room: [address]#: [id number] Admission: 03/16/21 Attend Phys: Rodriguez Mena MD Discharge: 03/17/21 Date of : 41 Report #: [id number] valve. Conclusion 1. 60% stenosis of the mid LAD 2. 90% stenosis of the mid circumflex artery. 3. No restenosis of the stent in the distal RCA 4. Chronic occlusion of the HAYWOOD graft 5. Single SVG was patent with anastomosis to the first diagonal artery, the ramus artery, and the third marginal branch of the circumflex artery. Recommendations Aggressive Medical Therapy <ELECTRONICALLY SIGNED> By: Chip Hoffmann MD, [facility] 03/17/21 [id number] Hoffmann MD, FAC /INF
--- NOTE | 2021-03-19 13:16 | CON ---
[address] [address] CONSULTATION Name: RIVER MONTOYA Room: [address] IN M.R.#: [id number] Admission: 03/16/21 Attend Phys: Rodriguez Mena MD Discharge: 03/17/21 Date of : 41 Report #: [id number] THIS REPORT FOR: cc: Chip Geiger David J. DO Blick, David R. MD [facility] ~ DOC #: [id number] cc: DO Chip Pabon MD [facility] DATE OF CONSULTATION: 03/16/2021 HISTORY OF PRESENT ILLNESS: The patient is a 75-year-old white male, who I was asked to see in the hospital today after he complained of chest pain. The patient has an extensive and complicated past medical history. He lives in [place]. He apparently had a heart attack back in 2012 and had a coronary stent placed in [place]. He apparently had repeat cardiac catheterization after that time in [place] that showed the stent was widely patent. I performed a cardiac catheterization in 2018 and he was found to have severe progression of his coronary artery disease, evidence of aortic stenosis. He eventually underwent quadruple coronary bypass surgery and aortic valve replacement using a tissue valve at [facility] in 01/2019. Postoperatively, he developed atrial fibrillation and was on amiodarone, although he eventually was taken off of amiodarone because of rash. This past year he had increasing shortness of breath. He was found to have intermittent atrial fibrillation and in November of this year underwent radiofrequency ablation at [facility] by Dr. Parker. Since that time, he continues to be short of breath when he exerts himself. However, he denied any palpitations. Recently, he has been having intermittent chest tightness with exertion. It is similar to his previous heart attack. It does make him short of breath. He had to take nitroglycerin. Yesterday after prolonged episode, he went to [facility] and was admitted. He ruled out for myocardial infarction. He was felt to be having unstable angina. He requested transfer to [place] for cardiac catheterization. He denies any recent fever, cough, edema, palpitations, bleeding. PAST MEDICAL HISTORY: Significant for shoulder surgery. He has a history of hyperlipidemia, but cannot tolerate statin drugs. He has a history of a small abdominal aneurysm. He has had hemorrhoids in the past. CURRENT MEDICATIONS: Consist of Pradaxa, which was stopped yesterday, Zetia, Pepcid. ALLERGIES: HIS PREVIOUS INTOLERANCE TO AMIODARONE, LIPITOR, LISINOPRIL CAUSED [place] [address] CONSULTATION Name: RIVER MONTOYA Room: [address] IN M.R.#: [id number] Admission: 03/16/21 Attend Phys: Rodriguez Mena MD Discharge: 03/17/21 Date of : 41 Report #: [id number] FAMILY HISTORY: His brother had bypass surgery. SOCIAL HISTORY: He is . He and his live in [place], [place]. 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 He quit smoking in 1987. Rarely drinks alcohol. REVIEW OF SYSTEMS: No history of stroke. Previous carotid Doppler study showed only minimal plaque. No history of asthma, liver disease, kidney disease. He has skin cancer removed in the past. Does wear glasses. No psychiatric illness. No chronic skin condition. PHYSICAL EXAMINATION: GENERAL: Revealed an elderly male who appears in no distress. VITAL SIGNS: Blood pressure 120/80, pulse is 70 and he is afebrile. HEENT: He was anicteric. Conjunctivae are pink. Mucosa is moist. NECK: Veins are nondistended. CHEST: Clear to auscultation. CARDIOVASCULAR: Regular rate and rhythm. Grade II systolic ejection murmur. ABDOMEN: Soft. EXTREMITIES: No edema. Posterior tibial pulses 2+ bilaterally. SKIN: Cool and dry. NEUROLOGIC: Nonfocal. LABORATORY DATA: ECG shows a normal sinus rhythm. IMPRESSION AND RECOMMENDATIONS: 1. Unstable angina. Recommend cardiac catheterization. If stenosis is noted, I would consider stenting. 2. Aortic valve replacement. The patient had an echocardiogram earlier today at [facility]. 3. History of atrial fibrillation. No clinical recurrences after ablation. 4. Hyperlipidemia. The patient is on Zetia. 5. History of a small abdominal aortic aneurysm. The patient is followed by Dr. Geiger. 6. History of hemorrhoids. The patient might require banding in the future. 7. Previous tobacco abuse. Fortunately, the patient no longer smokes. Chip Hoffmann MD [facility] TREY/ARLEN [address] [place] [address] CONSULTATION Name: RIVER MONTOYA Room: [address]#: [id number] Admission: 03/16/21 Attend Phys: Rodriguez Mena MD Discharge: 03/17/21 Date of : 41 Report #: [id number] <ELECTRONICALLY SIGNED> By: Chip Hoffmann MD, FACC 03/19/21 1316 [id number] Hoffmann MD, FACC /nt
== END 2021-03-17 16:00 | disposition home or self-care (01) | DRG 287 ==
LOC: M.2W 13:52
PROVIDERS: ADMIT Internal Medicine; ATTEND Internal Medicine
PROC: 4A023N7 Measurement of Cardiac Sampling and Pressure, Left Heart, Percutaneous Approach (ICD-10-PCS; principal; 2021-03-17)
PROC: B4101ZZ Fluoroscopy of Abdominal Aorta using Low Osmolar Contrast (ICD-10-PCS; principal; 2021-03-17)
PROC: B2181ZZ Fluoroscopy of Left Internal Mammary Bypass Graft using Low Osmolar Contrast (ICD-10-PCS; principal; 2021-03-17)
PROC: B2111ZZ Fluoroscopy of Multiple Coronary Arteries using Low Osmolar Contrast (ICD-10-PCS; principal; 2021-03-17)
PROC: B2131ZZ Fluoroscopy of Multiple Coronary Artery Bypass Grafts using Low Osmolar Contrast (ICD-10-PCS; principal; 2021-03-17)
DX: I25.110 Atherosclerotic heart disease of native coronary artery with unstable angina pectoris (principal); E78.5 Hyperlipidemia, unspecified; I10 Essential (primary) hypertension; I25.2 Old myocardial infarction; Z95.5 Presence of coronary angioplasty implant and graft; Z95.1 Presence of aortocoronary bypass graft; Z88.8 Allergy status to other drugs, medicaments and biological substances; Z79.01 Long term (current) use of anticoagulants; Z79.899 Other long term (current) drug therapy